=== PATIENT | male | born 1945 | race Caucasian/White ===

== ENCOUNTER 2021-05-10 07:52 | Emergency (ER) | payer MEDICARE ==
[2021-05-10 08:36] LABS: HEMOGLOBIN 14.8 gm/dl (14.0-17.5); RED BLOOD COUNT 4.67 M/UL (4.20-5.50); WHITE BLOOD COUNT 3.6 K/UL (4.5-11.0)
[2021-05-10 09:08] LABS: BUN/CREATININE RATIO 16 (0-10)
== END 2021-05-10 13:00 | disposition short-term general hospital (02) ==
LOC: ER1 07:52
DX: U07.1 COVID-19 (principal); E87.1 Hypo-osmolality and hyponatremia; E78.5 Hyperlipidemia, unspecified; I11.9 Hypertensive heart disease without heart failure; Z79.01 Long term (current) use of anticoagulants
CPT/HCPCS: 36600; 71045; 80053; 82550; 82553; 82803; 83874; 84484; 85025; 93005; 96374; 96375; 99285; J1100; J2405; J2550; U0002